=== PATIENT | female | born 1990 | race Caucasian/White ===

== ENCOUNTER 2016-10-08 10:15 | Observation (INO) ==
--- NOTE | 2016-10-08 11:43 | OB/GYN Progress Note ---
Date of Encounter: 10/08/16 Time of Encounter: 11:39 - Assessment and Plan (1) 28 weeks gestation of Current Visit: Yes Status: Acute (2) Vaginal bleeding Current Visit: Yes Status: Acute Spec exam no bleeding in vagina, white secretions noted, cervix closed on exam, appropriate for discharge home, labor precautions given Subjective - Subjective Interval history: 26 y/0 with previously uncomplicated other than elevated one hour glucose presents with spotting noted when wiping after using restroom. Pt states was a couple small nickel size spots. Denies cramping, contractions, leaking of fluid, states good movement. Pt is being treated for UTI and says symptoms are resolving and did have intercourse last night. Antepartum ROS: vaginal bleeding, movement normal, no loss of fluid, no contractions Objective - Vital Signs Vital Signs: Intake and Output 10/07/16 10/08/16 10/08/16 23:59 07:59 15:59 Other: Weight 100.4 kg Patient Weight 10/08/16 23:59 Weight 100.4 kg - Exam FHR: auscultation normal FHR comments: heart tracing appropriate for gestational age. Abdomen: Present: normal appearance, soft, gravid Uterus: Present: normal Cervical dilation: 0
== END 2016-10-08 11:59 | disposition home or self-care (01) ==
LOC: 1NENULAB
PROVIDERS: ADMIT Obstetrics & Gynecology; ATTEND Obstetrics & Gynecology

== ENCOUNTER → 2016-10-21 11:08 | Observation (INO) ==
[2016-10-20 16:19] LABS: Basophils % 0.3 %; Eosinophils % 0.3 %; Hematocrit 39.2 % (35.3-44.9); Hemoglobin 12.6 g/dL (11.5-15.4); Immature Granulocytes % 0.4 % (0-4); Immature Platelets 10.6 % (1.1-6.1); Lymphocytes # 2.4 K/mcL (0.6-4.6); Lymphocytes % 22.2 %; Mean Corpuscular HGB Conc 32.1 g/dL (31.6-35.5); Mean Corpuscular Volume 77.9 fL (83.0-100.0); Mean Platelet Volume 11.3 fL (9.4-12.4); Monocytes # 0.6 K/mcL (0.0-1.3); Monocytes % 5.6 %; Neutrophils # 7.7 K/mcL (1.6-8.9); Platelet Count 213 K/mcL (140-400); Red Blood Count 5.03 M/mcL (3.82-4.97); Red Cell Distribution Width 14.9 % (11.5-14.5); Segmented Neutrophils % 71.2 %
[2016-10-20 16:36] LABS: Alanine Aminotransferase 14 Units/L (0-55); Aspartate Amino Transferase 19 Units/L (5-34); BUN/Creatinine Ratio 24 (6-26); Blood Urea Nitrogen 16 mg/dL (7-20); Lactate Dehydrogenase 155 Units/L (159-327); Protein/Creatinine Ratio,Urine 1.16 mg/mg (0-0.20); Uric Acid 8.5 mg/dL (2.6-6.0); eGFR For African Americans > 60 (> 60); eGFR For Non-African Americans > 60 (> 60)
--- NOTE | 2016-10-20 16:36 | OB/GYN History & Physical ---
Date of Encounter: 10/20/16 Time of Encounter: 16:30 Assessment and Plan (1) Hypertension affecting in third trimester Current visit: Yes Status: Acute -Patient only complaint is swelling in her legs, hands and feet which was not significant on physical exam. Patient otherwise asymptomatic -Patient is resting comfortably with no questions or concerns. -BP has decreased from 160/x to 140/x. FHR WNL, not olman. BPs 120/70-80s -No need for steroids, mag ppx Plan -Monitor BP, HR -Urine, BMP, LFTs, to evaluate for preelampsia -CBC, 24h urine protein -Consider labetalol or aldomet depending on BP response to BR -Patient will be held overnight and redraw labs. (2) 30 weeks gestation of Current visit: Yes Status: Acute Continue PNC with Dr Alcala (3) Gestational diabetes mellitus (GDM) Current visit: Yes Status: Acute -Blood sugars controlled on glyburide Plan -Continue glyburide 2.5 at dinner time -accucheck PP and HS -Diabetic diet and community health educator Qualifiers: Gestational diabetes mellitus control: oral hypoglycemic-controlled Trimester: third trimester Qualified Code(s): O24.415 - Gestational diabetes mellitus in , controlled by oral hypoglycemic drugs History of Present Illness Chief complaint: Hypertension, 30w HPI: Ms. Edouard is a 26 year old female, , admitted for HTN. Sent over by Dr. Alcala from an office visit. Her only complaint is some increase swelling in her legs, face and hands, otherwise she is asymptomatic. This is complicated by some pervious vaginal spotting 2 weeks ago and GDM, she was started on glyburide which was increased to 2.5 mg today to provide better control. She has no complaints or concerns at this time. Denies blurry vision, Headache, CP, SOB, urinary problems, vaginal discharge. Denies smoking, drinking , drug use. No surgeries. Blood type O positive. GBS unknown. Fetus is active Past Med Surg Social Fam HX - Past Medical History Source: patient, old records reviewed Medical history: no medical history Psychiatric history: no psych history - Past Surgical History Surgical History: orthopedic, other - Social History Smoking Status: Never smoker Alcohol use: none Drug use: none - Family History Mother Age: 50 Hx Family Cardiac Disorders: Yes (HTN) Obstetrical History - Pregnancies : 1 Para: 0 Term: 0 : 0 Ab's: 0 Livin Medications and Allergies Tablet 1 PO DAILY 10/08/16 [History] GlyBURIDE 2.5 mg PO 10/20/16 [History] Allergies adhesive Allergy (Intermediate, Verified 10/08/16 11:11) Rash adhesive tape Allergy (Verified 10/08/16 11:11) Rash Review of System OB All systems PM: reviewed and no additional remarkable complaints except as stated - Constitutional Constitutional ROS IM: as per HPI, weight gain - Cardiovascular Cardiovascular: as per HPI, edema, leg edema - Respiratory Respiratory: as per HPI - Muscloskeletal Musculoskeletal: bilateral: ankle swelling, hand swelling - Neurological Nerological: no headache(s), no other visual disturbances Exam - Constitutional Constitutional: well developed, well nourished, no acute distress, average body habitus - HEENT HEENT: Normocephaly, Mucus Membranes Moist - Neck Neck exam: supple - Lungs Respiratory exam: CTAB - Cardiovascular Cardiovascular exam: RRR, +S1, +S2 - Abdomen Abdomen: Present: gravid, non tender - Extremities Extremities exam: pedal edema, warm Deep Tendon Reflex Grade: 2+ Normal Results Result Diagrams: 10/20/16 16:11 10/20/16 16:11 Abnormal lab results RBC 5.03 M/mcL (3.82-4.97) H 10/20/16 16:11 MCV 77.9 fL (83.0-100.0) L 10/20/16 16:11 MCH 25.0 pg (28.0-33.3) L 10/20/16 16:11 RDW 14.9 % (11.5-14.5) H 10/20/16 16:11 Immature Plt Fraction 10.6 % (1.1-6.1) H 10/20/16 16:11 All other labs normal. - VTE Reasons for not Prescribing Prophylaxis: Treatment not Indicated - Low risk for VTE - Attending Attestation I examined this patient and my medical decision-making was reviewed with the HVAC INSTALLATION TECHNICIAN/PA/Advanced Practice Nurse/Resident Physician. I agree with the documented findings, disposition and treatment plan as described except to the extent set forth below.
[2016-10-21 06:54] LABS: Basophils % 0.2 %; Eosinophils # 0.1 K/mcL (0.0-0.6); Eosinophils % 0.5 %; Hematocrit 37.4 % (35.3-44.9); Immature Granulocytes % 0.5 % (0-4); Lymphocytes # 2.8 K/mcL (0.6-4.6); Mean Corpuscular HGB Conc 32.1 g/dL (31.6-35.5); Mean Corpuscular Hemoglobin 25.1 pg (28.0-33.3); Mean Corpuscular Volume 78.1 fL (83.0-100.0); Mean Platelet Volume 11.3 fL (9.4-12.4); Monocytes # 0.7 K/mcL (0.0-1.3); Monocytes % 7.1 %; Platelet Count 200 K/mcL (140-400); Red Blood Count 4.79 M/mcL (3.82-4.97); Red Cell Distribution Width 14.7 % (11.5-14.5); Segmented Neutrophils % 62.7 %
[2016-10-21 07:09] LABS: Alanine Aminotransferase 13 Units/L (0-55); Aspartate Amino Transferase 18 Units/L (5-34); BUN/Creatinine Ratio 20 (6-26); Blood Urea Nitrogen 12 mg/dL (7-20); Calcium 8.5 mg/dL (8.6-10.8); Carbon Dioxide 19 mEq/L (19-29); Chloride 109 mEq/L (98-109); Glucose 72 mg/dL (70-99); Lactate Dehydrogenase 156 Units/L (159-327); Osmolality,Calculated 282 (280-300); Potassium 3.8 mEq/L (3.5-4.5); Sodium 137 mEq/L (136-145); eGFR For African Americans > 60 (> 60); eGFR For Non-African Americans > 60 (> 60)
[2016-10-21 08:28] LABS: Uric Acid 9.2 mg/dL (2.6-6.0)
--- NOTE | 2016-10-21 10:13 | OB/GYN Progress Note ---
Date of Encounter: 10/21/16 Time of Encounter: 10:11 - Assessment and Plan (1) Preeclampsia Current Visit: Yes Status: Acute Celestone 12.5 now IM. Magnesium sulfate 4 gram loading dose and then 2 grams per hour. Transfer to [facility]. POC discussed with Dr. Walker and Dr. Call ([facility]) Qualifiers: Trimester: third trimester Qualified Code(s): O14.93 - Unspecified pre- eclampsia, third trimester (2) 30 weeks gestation of Current Visit: Yes Status: Acute (3) Gestational diabetes mellitus (GDM) Current Visit: Yes Status: Acute Qualifiers: Gestational diabetes mellitus control: oral hypoglycemic-controlled Trimester: third trimester Qualified Code(s): O24.415 - Gestational diabetes mellitus in , controlled by oral hypoglycemic drugs Subjective - Subjective Interval history: 26 year-old now 30w2d who presented yesterday with new onset hypertension with severe range BP. She reported some increased edema but denied any neurologic sx. Her labs were WNL except uric acid 8.5 and protein creatinine ratio 1.16. She was admitted for observation and blood pressure management since her blood pressures came down to mild range shortly after she arrived to triage. She was started on aldomet 250mg BID. This am she reports new onset of headache. No vision changes or RUQ pain. Her blood pressure spiked to 150's/90' s this am. Repeat labs showed an increase in uric acid to 9.2. No other significant lab findings. Antepartum ROS: movement normal, no loss of fluid, no vaginal bleeding, no contractions Objective - Exam FHR: category 1 FHR comments: NST reactive for GA Auscultation: bilateral: normal Abdomen: Present: soft, gravid. Absent: tenderness Uterus: Absent: tenderness - Labs Labs: Abnormal lab results MCV 78.1 fL (83.0-100.0) L 10/21/16 06:25 MCH 25.1 pg (28.0-33.3) L 10/21/16 06:25 RDW 14.7 % (11.5-14.5) H 10/21/16 06:25 Immature Plt Fraction 10.6 % (1.1-6.1) H 10/20/16 16:11 POC Glucose 109 (58-89) H 10/20/16 20:03 Uric Acid 9.2 mg/dL (2.6-6.0) H 10/21/16 06:25 Calcium 8.5 mg/dL (8.6-10.8) L 10/21/16 06:25 Lactate Dehydrogenase 156 Units/L (159-327) L 10/21/16 06:25 Protein/Creatinin Ratio 1.16 mg/mg (0-0.20) H 10/20/16 16:11 Urine Total Protein 67 mg/dL (1-14) H 10/20/16 16:11
--- NOTE | 2016-10-21 10:36 | Discharge Summary ---
Date of Encounter: 10/21/16 Time of Encounter: 10:36 - Discharge Diagnosis (1) Preeclampsia Priority: Primary Status: Acute Qualifiers: Trimester: third trimester Qualified Code(s): O14.93 - Unspecified pre- eclampsia, third trimester (2) 30 weeks gestation of Priority: Secondary Status: Acute (3) Gestational diabetes mellitus (GDM) Priority: Secondary Status: Acute Qualifiers: Gestational diabetes mellitus control: oral hypoglycemic-controlled Trimester: third trimester Qualified Code(s): O24.415 - Gestational diabetes mellitus in , controlled by oral hypoglycemic drugs - Discharge Medications Home Medications: Tablet 1 PO DAILY 10/08/16 [History] GlyBURIDE 2.5 mg PO 10/20/16 [History] Allergies/Adverse Reactions: Allergies adhesive Allergy (Intermediate, Verified 10/08/16 11:11) Rash adhesive tape Allergy (Verified 10/08/16 11:11) Rash Data Procedures and tests throughout hospitalization: Laboratory Tests 10/20/16 10/20/16 10/20/16 16:11 16:11 16:11 WBC 10.7 RBC 5.03 H Hgb 12.6 Hct 39.2 MCV 77.9 L MCH 25.0 L MCHC 32.1 RDW 14.9 H Plt Count 213 MPV 11.3 Immature Gran % 0.4 Seg Neutrophils % 71.2 Lymphocytes % 22.2 Monocytes % 5.6 Eosinophils % 0.3 Basophils % 0.3 Neutrophils # 7.7 Lymphocytes # 2.4 Monocytes # 0.6 Eosinophils # 0.0 Basophils # 0.0 Immature Plt Fraction 10.6 H Sodium Potassium Chloride Carbon Dioxide BUN 16 Creatinine 0.67 Est GFR ( Amer) > 60 Est GFR (Non-Af Amer) > 60 BUN/Creatinine Ratio 24 Glucose POC Glucose Calculated Osmolality Uric Acid 8.5 H Calcium AST 19 ALT 14 Lactate Dehydrogenase 155 L Urine Creatinine 58 Protein/Creatinin Ratio 1.16 H Urine Total Protein 67 H 10/20/16 10/21/16 10/21/16 20:03 06:25 06:25 WBC 9.5 RBC 4.79 Hgb 12.0 Hct 37.4 MCV 78.1 L MCH 25.1 L MCHC 32.1 RDW 14.7 H Plt Count 200 MPV 11.3 Immature Gran % 0.5 Seg Neutrophils % 62.7 Lymphocytes % 29.0 Monocytes % 7.1 Eosinophils % 0.5 Basophils % 0.2 Neutrophils # 6.0 Lymphocytes # 2.8 Monocytes # 0.7 Eosinophils # 0.1 Basophils # 0.0 Immature Plt Fraction Sodium 137 Potassium 3.8 Chloride 109 Carbon Dioxide 19 BUN 12 Creatinine 0.61 Est GFR ( Amer) > 60 Est GFR (Non-Af Amer) > 60 BUN/Creatinine Ratio 20 Glucose 72 POC Glucose 109 H Calculated Osmolality 282 Uric Acid 9.2 H Calcium 8.5 L AST 18 ALT 13 Lactate Dehydrogenase 156 L Urine Creatinine Protein/Creatinin Ratio Urine Total Protein Labs on day of discharge: Labs from last 24 hours 10/21/16 10/21/16 10/20/16 06:25 06:25 20:03 WBC 9.5 RBC 4.79 Hgb 12.0 Hct 37.4 MCV 78.1 L MCH 25.1 L MCHC 32.1 RDW 14.7 H Plt Count 200 MPV 11.3 Immature Gran % 0.5 Seg Neutrophils % 62.7 Lymphocytes % 29.0 Monocytes % 7.1 Eosinophils % 0.5 Basophils % 0.2 Neutrophils # 6.0 Lymphocytes # 2.8 Monocytes # 0.7 Eosinophils # 0.1 Basophils # 0.0 Immature Plt Fraction Sodium 137 Potassium 3.8 Chloride 109 Carbon Dioxide 19 BUN 12 Creatinine 0.61 Est GFR ( Amer) > 60 Est GFR (Non-Af Amer) > 60 BUN/Creatinine Ratio 20 Glucose 72 POC Glucose 109 H Calculated Osmolality 282 Uric Acid 9.2 H Calcium 8.5 L AST 18 ALT 13 Lactate Dehydrogenase 156 L Urine Creatinine Protein/Creatinin Ratio Urine Total Protein 10/20/16 10/20/16 10/20/16 16:11 16:11 16:11 WBC 10.7 RBC 5.03 H Hgb 12.6 Hct 39.2 MCV 77.9 L MCH 25.0 L MCHC 32.1 RDW 14.9 H Plt Count 213 MPV 11.3 Immature Gran % 0.4 Seg Neutrophils % 71.2 Lymphocytes % 22.2 Monocytes % 5.6 Eosinophils % 0.3 Basophils % 0.3 Neutrophils # 7.7 Lymphocytes # 2.4 Monocytes # 0.6 Eosinophils # 0.0 Basophils # 0.0 Immature Plt Fraction 10.6 H Sodium Potassium Chloride Carbon Dioxide BUN 16 Creatinine 0.67 Est GFR ( Amer) > 60 Est GFR (Non-Af Amer) > 60 BUN/Creatinine Ratio 24 Glucose POC Glucose Calculated Osmolality Uric Acid 8.5 H Calcium AST 19 ALT 14 Lactate Dehydrogenase 155 L Urine Creatinine 58 Protein/Creatinin Ratio 1.16 H Urine Total Protein 67 H Date of admission: 10/20/16 15:12 Primary care physician: Stacie Martinez, Consults: 10/20/16 17:25 Consult to Legal Activity Adjudicator [CONS] Routine Comment: Discharging clinician: Filomena Pizano Anticipated date of discharge: 10/21/16 - Patient Status Disposition: Transfer Short-Term Hosp Condition: Fair Functional capacity at discharge: independent ambulation Overall status at discharge: patient is not back to baseline - Discharge Instructions Follow Up With: Stacie Martinez MD [Primary Care Provider] - Pat Alcala DO [Partnered Physician] - Hospital Course [facility] Hospital course: 26 year-old now 30w2d who presented yesterday with new onset hypertension with severe range BP. She reported some increased edema but denied any neurologic sx. Her labs were WNL except uric acid 8.5 and protein creatinine ratio 1.16. She was admitted for observation and blood pressure management since her blood pressures came down to mild range shortly after she arrived to triage. She was started on aldomet 250mg BID. This am she reports new onset of headache. No vision changes or RUQ pain. Her blood pressure spiked to 150's/90' s this am. Repeat labs showed an increase in uric acid to 9.2. No other significant lab findings. Time Attestation: Total time spent providing and/or coordinating discharge services: Exam - Constitutional General appearance IM: A&O X 3, pleasant, no acute distress - Respiratory Respiratory exam: Present: CTAB - Cardiovascular Cardiovascular exam IM: Present: RRR, +S1, +S2 - GI/Abdominal GI/Abdominal exam IM: soft - Extremities Exam Extremities exam IM: Present: normal inspection, pedal edema (no erythema, warmth, or palpable cords) - Neurological Exam Neurological exam: normal gait, oriented X3 Additional comments: Pt c/o headache, reflexes 2+, no clonus - VTE Reasons for not Prescribing Prophylaxis: Treatment not Indicated - Low risk for VTE
[~2016-10-21 11:08] MED LIST: *HR* GlyBURIDE 2.5 MG TABLET PO SCH; Acetaminophen 325 MG TABLET PO PRN; Betamethasone Acet/SodPhos 6 MG/ML MDV IM SCH; Magnesium Sulfate 20 gm/500mL 20 GM/500 ML IV.SOLN IVC SCH; Prenatal Vit/FA 1 EACH TABLET PO SCH; Ringers Solution, Lactated 1,000 ML ONE
== END | disposition short-term general hospital (02) ==
LOC: 1NENULAB
PROVIDERS: ADMIT Obstetrics & Gynecology; ATTEND Obstetrics & Gynecology

== ENCOUNTER → 2016-10-25 19:20 | Observation (INO) ==
[2016-10-25 16:53] LABS: Bilirubin,Urine Negative (Negative); Blood,Urine Negative (Negative); Clarity,Urine Clear (Clear); Color,Urine Yellow (Yellow); Glucose,Urine (UA) Normal (Normal); Ketones,Urine Negative (Negative); Leukocyte Esterase,Urine Negative (Negative); Nitrite,Urine Negative (Negative); PH,Urine 6.5 pH Units (5.0-8.0); Protein,Urine 30 mg/dL (Neg-Trace); Specific Gravity,Urine 1.011 (1.010-1.025); Urobilinogen,Urine Normal (Normal)
[2016-10-25 16:58] LABS: Bacteria,Urine Few per hpf (None-Few); Hyaline Casts,Urine None Seen per lpf (None-Few); RBC,Urine 0-3 per hpf (0-3); Squamous Epithelial Cell,Urine Many per lpf (None-Few); WBC,Urine 0-3 per hpf (0-3)
[2016-10-25 16:59] LABS: Basophils % 0.3 %; Eosinophils % 0.3 %; Hematocrit 40.8 % (35.3-44.9); Hemoglobin 13.3 g/dL (11.5-15.4); Immature Granulocytes % 0.6 % (0-4); Lymphocytes # 2.8 K/mcL (0.6-4.6); Lymphocytes % 24.1 %; Mean Corpuscular HGB Conc 32.6 g/dL (31.6-35.5); Mean Corpuscular Hemoglobin 25.4 pg (28.0-33.3); Mean Platelet Volume 11.9 fL (9.4-12.4); Monocytes # 0.9 K/mcL (0.0-1.3); Monocytes % 7.4 %; Neutrophils # 7.8 K/mcL (1.6-8.9); Platelet Count 216 K/mcL (140-400); Red Blood Count 5.23 M/mcL (3.82-4.97); Red Cell Distribution Width 15.2 % (11.5-14.5); Segmented Neutrophils % 67.3 %
[2016-10-25 17:05] LABS: Protein/Creatinine Ratio,Urine 1.57 mg/mg (0-0.20)
[2016-10-25 17:12] LABS: Alanine Aminotransferase 21 Units/L (0-55); Aspartate Amino Transferase 20 Units/L (5-34); BUN/Creatinine Ratio 24 (6-26); Blood Urea Nitrogen 17 mg/dL (7-20); Lactate Dehydrogenase 168 Units/L (159-327); Uric Acid 9.2 mg/dL (2.6-6.0); eGFR For African Americans > 60 (> 60); eGFR For Non-African Americans > 60 (> 60)
--- NOTE | 2016-10-25 17:45 | OB/GYN History & Physical ---
Date of Encounter: 10/25/16 Time of Encounter: 17:40 Assessment and Plan (1) First in adolescent 16 years of age or older in third trimester Current visit: Yes Status: Acute (2) 30 weeks gestation of Current visit: No Status: Acute (3) Gestational diabetes mellitus (GDM) Current visit: No Status: Acute Qualifiers: Gestational diabetes mellitus control: oral hypoglycemic-controlled Trimester: third trimester Qualified Code(s): O24.415 - Gestational diabetes mellitus in , controlled by oral hypoglycemic drugs (4) Hypertension affecting in third trimester Current visit: No Status: Acute Patient has received 1 dose of labetalol IV push magnesium sulfate will be started 4 g loading dose and 2 g an hour when stable will be transferred to [facility] (5) Preeclampsia Current visit: No Status: Acute Qualifiers: Trimester: third trimester Qualified Code(s): O14.93 - Unspecified pre- eclampsia, third trimester History of Present Illness HPI: Ms. Edouard is a 26 year old female 1 para 0 at 30-6/7 weeks who was sent in from the office secondary to elevated blood pressures. Patient's blood pressures in the office were 150s to 160s over 100-113. This was repeated on 4- 5 different occasions over an hour. We did an NST in the office was reassuring but not reactive did a biophysical profile which was 8 out of 8. The patient was sent to labor and delivery last week with similar complaints and was transferred to [facility] for preeclampsia. Patient states that she was at the institution for approximately 48 hours and was discharged home on no medications just instructed to follow-up in our office. Her blood pressures at there institution within normal range. Patient had a uric acid which was 9.2 with a protein creatinine ratio of 1.16 here 1 week ago. The remaining labs were normal. At that time patient was also complaining of headaches and some blurred vision. She states she is not having headaches or blurred vision today she just does not feel right. The patient's blood pressure is still elevated on labor and delivery her lab work shows that the protein/Creatine ratio has now increased to 1.57 and uric acid is still 9.2. She is not complaining of any contractions and is still having good movement. Did discuss the case with the maternal medicine on-call fellow who agrees patient should be transferred back to their institution. Patient has received 1 dose of IV labetalol and will be started on magnesium sulfate. Past Med Surg Social Fam HX - Past Medical History Medical history: diabetes (gestational on glyburide) Psychiatric history: no psych history - Past Surgical History Surgical History: orthopedic, other - Social History Smoking Status: Never smoker Alcohol use: none Drug use: none Occupational status: employed Current living situation: Home - Independent Activity Level: Independent ambulation Recent Out of Country Travel Within the Last 8 Weeks: No Exposure or Possible Exposure to Illness During Travel: No - Family History Mother Hx Family Cardiac Disorders: Yes (HTN) - Additional Family History Additional family history: Family history noncontributory Obstetrical History - Pregnancies : 1 Para: 0 Medications and Allergies Tablet 1 tab PO DAILY 10/08/16 [History] GlyBURIDE 2.5 mg PO DAILY 10/20/16 [History] Allergies adhesive Allergy (Intermediate, Verified 10/25/16 16:30) Rash adhesive tape Allergy (Verified 10/25/16 16:30) Rash Review of System OB All systems PM: reviewed and no additional remarkable complaints except as stated - Neurological Nerological: headache(s) Exam - Constitutional Constitutional: well developed, well nourished, no acute distress, average body habitus - HEENT HEENT: PERRL - Neck Neck exam: full ROM - Lungs Respiratory exam: CTAB - Cardiovascular Cardiovascular exam: RRR - Abdomen Abdomen: Present: gravid ( heart tones 140s reassuring no contractions) Results Result Diagrams: 10/25/16 16:45 10/25/16 16:45 Abnormal lab results WBC 11.6 K/mcL (4.3-11.1) H 10/25/16 16:45 RBC 5.23 M/mcL (3.82-4.97) H 10/25/16 16:45 MCV 78.0 fL (83.0-100.0) L 10/25/16 16:45 MCH 25.4 pg (28.0-33.3) L 10/25/16 16:45 RDW 15.2 % (11.5-14.5) H 10/25/16 16:45 Uric Acid 9.2 mg/dL (2.6-6.0) H 10/25/16 16:45 Urine Protein 30 mg/dL (Neg-Trace) H 10/25/16 16:33 Ur Squamous Epith Cells Many per lpf (None-Few) H 10/25/16 16:33 Protein/Creatinin Ratio 1.57 mg/mg (0-0.20) H 10/25/16 16:33 Urine Total Protein 44 mg/dL (1-14) H 10/25/16 16:33 All other labs normal. - VTE Reasons for not Prescribing Prophylaxis: Medical contraindication
[~2016-10-25 19:20] MED LIST changes: -*HR* GlyBURIDE 2.5 MG TABLET PO SCH; +*HR* Labetalol 20 MG/4 ML SYRINGE IVP ONE; -Acetaminophen 325 MG TABLET PO PRN; -Betamethasone Acet/SodPhos 6 MG/ML MDV IM SCH; +Calcium Gluconate 1,000 MG/10 ML VIAL IVPB ONE; -Prenatal Vit/FA 1 EACH TABLET PO SCH; +Ringers Solution, Lactated 1,000 ML IVC SCH; -Ringers Solution, Lactated 1,000 ML ONE
== END | disposition short-term general hospital (02) ==
LOC: 1NENULAB
PROVIDERS: ADMIT Obstetrics & Gynecology; ATTEND Obstetrics & Gynecology